=== PATIENT | male | born 2000 | race Caucasian/White ===

== ENCOUNTER 2025-04-02 19:24 | Emergency (ER) | payer BC, SELFPAY ==
[2025-04-02 19:25] VITALS: BP 144/76; PULSE 78; RESP 18; TEMP 37; O2SAT 99; BMI 25.4
--- NOTE | 2025-04-02 19:46 | EDS_ITS ---
HPI History of Present Illness Chief Complaint: Syncope Detail of Chief Complaint: Syncope and collapse Informant: patient and spouse/S.O. Onset/Context/Timing Onset: Today and Hours Context: Sudden Onset Timing: Intermittent Quality: Collapse and abnormal motion Location: Residence Current Severity: Gone Maximum Severity: Severe Worsened by: Patient did not having to eat or drink today at work Relieved by: Not applicable Associated Symptoms Associated Symptoms: Pallor according to Narrative Narrative: Patient is a 24-year-old male who went to work. He did not have any to eat or drink all day. He had a 1.5-hour drive home. He stated he sat on the couch waiting for dinner that was being made by his significant other. He had been sitting there for approximately 20 minutes. When he got up he got lightheaded apparently collapsed. This lasted a couple of seconds. There was some abnormal movement of his extremities. He did not bite his tongue. He denies headache. He denied incontinence of urine or stool. He had no prior history. He had an EKG in the past which is normal. There is no history of WPW, Prabhakar Long Ganong syndrome prolonged QT etc. He denies any symptoms presently. He states his vision was not normal. He denied chest pain, pressure tightness heaviness. He denied dyspnea. He has not had recent black or maroon stool. He is not had recent diarrhea. Prior similar symptoms: No Recent Illness/Hospitalization: No PFSH PFSH Medical History no medical history no medical history Home Medications ?Medication ?Instructions ?Recorded ?Last Taken ?Type NK 04/02/25 Unknown History Allergy/AdvReac Type Severity Reaction Status Date / Time Sulfa (Sulfonamide Allergy Hives Verified 04/02/25 19:26 Antibiotics) Family History no significant family his no significant family history Surgical History no surgical history no surgical history Social History household members: spouse current occupational status: employed Smoking Status: Never smoker ROS ROS ED Constitutional Constitutional ED: Denies chills, fever(s), subjective or sweats Eyes Eyes: Reports change in vision Cardiovascular Cardiovascular: Denies chest pain or palpitations Respiratory/Chest Respiratory/Chest: Denies cough, dyspnea or dyspnea on exertion Gastrointestinal Gastrointestinal: Reports nausea; Denies abdominal pain, diarrhea, melena or vomiting Genitourinary Genitourinary ED: Denies dysuria, hematuria or urinary frequency Neurologic Neurologic: Denies headache(s), paresthesias or weakness EXAM Physical Exam Const Vital Signs: 04/02/25 19:25 04/02/25 19:42 04/02/25 19:51 Temperature 98.6 F Temperature Source Oral Pulse Rate 78 Pulse Rate [Lying] 89 Pulse Rate [Sitting (for 1 minute prior to obtaining)] 79 Pulse Rate [Standing (for 1 minute prior to obtaining)] 98 Respiratory Rate 18 Respiratory Effort Normal Non-Labored Respiratory Pattern Normal Blood Pressure 144/76 H Blood Pressure [Lying] 139/75 H Blood Pressure [Sitting (for 1 minute prior to obtaining)] 154/74 H Blood Pressure [Standing (for 1 minute prior to obtaining)] 140/83 H Blood Pressure Mean 98 Blood Pressure Mean [Lying] 96 Blood Pressure Mean [Sitting (for 1 minute prior to obtaining)] 100 Blood Pressure Mean [Standing (for 1 minute prior to obtaining)] 102 Pulse Ox 99 Oxygen Delivery Method Room Air 04/02/25 20:15 04/02/25 21:00 04/02/25 22:00 Temperature 96.9 F L Temperature Source Pulse Rate 76 64 86 Pulse Rate [Lying] Pulse Rate [Sitting (for 1 minute prior to obtaining)] Pulse Rate [Standing (for 1 minute prior to obtaining)] Respiratory Rate 17 11 L 18 Respiratory Effort Respiratory Pattern Blood Pressure 138/73 H 141/69 H Blood Pressure [Lying] Blood Pressure [Sitting (for 1 minute prior to obtaining)] Blood Pressure [Standing (for 1 minute prior to obtaining)] Blood Pressure Mean 93 93 Blood Pressure Mean [Lying] Blood Pressure Mean [Sitting (for 1 minute prior to obtaining)] Blood Pressure Mean [Standing (for 1 minute prior to obtaining)] Pulse Ox 100 99 100 Oxygen Delivery Method Positive well nourished and well developed Constitutional Narrative: Orthostatic vital signs were normal. Patient does have an elevated blood pressure General Appearance ED: well developed and NAD; Negative for pallor HEENT Reports dry mucous membranes HEENT Narrative: Head is atraumatic normocephalic. Ears normal. Nares patent. Posterior pharynx is normal. Mouth ED: Yes dry mucous membranes Mouth: dry mucous membranes Eyes PERRL and EOMs intact bilaterally General Eye ED: Negative for pale conjunctiva or scleral icterus Neck no lymphadenopathy, supple and no JVD Resp normal respiratory effort and clear to auscultation bilaterally Cardio regular rate, regular rhythm, S1 normal heart sound, S2 normal heart sound and no murmurs GI normal to inspection, nondistended, normoactive bowel sounds, non-tender, non- distended and no masses; Negative for hepatosplenomegaly Extremity normal to inspection Neuro oriented x3 and CN's II-XII intact bilaterally Sensorium / Orientation: alert Psych mental status grossly normal Skin no rashes or lesions noted, no wounds and skin turgor normal General Skin Exam: elasticity normal; Negative for jaundice or pallor MDM MDM MDM Narrative Medical decision making narrative: Differential diagnosis is vasovagal syncope, cardiac dysrhythmia, orthostatic hypotension. Suspect the latter. Since patient's had prior EKGs which revealed no evidence of preexcitation syndrome or prolonged QT and he is on no medication do not believe a repeat needs to be obtained. Will place on the monitor. Monitor reveals a sinus rhythm rate of 88 with no ectopy. Since orthostatics were negative he was discharged to home with appropriate home-going instruction. Suspect this was a vasovagal event. Rhythm Strip Rhythm Strip: Sinus Rhythm Rate: 80 Ectopy: None Discharge Plan Triage Chief Complaint: Syncope ED Provider: Damir Yates Dx/Rx/DC Orders Clinical Impression: Syncope and collapse, Elevated blood-pressure reading without diagnosis of hypertension Instructions: ED Fainting, Vagal Reaction Prescriptions: No Action NK Primary Care Provider: Care Physician,No Primary Referrals: Rony Pabon MD [Med Staff - [facility]] - As Needed Care Physician,No Primary [Primary Care Provider, Medical] Activity Restrictions/Additional Instructions: Follow-up with your doctor as needed. If you do not have a doctor follow-up with Dr. Elias Print Language: Welsh Disposition Disposition: Home, Self Care Discharge Date/Time: 04/02/25 22:10
[2025-04-02 19:51] VITALS: BP 139/75; BP 140/83; BP 154/74; PULSE 79; PULSE 89; PULSE 98
[2025-04-02 20:15] VITALS: BP 138/73; PULSE 76; RESP 17; O2SAT 100
[2025-04-02 21:00] VITALS: PULSE 64; RESP 11; O2SAT 99
[2025-04-02 22:00] VITALS: BP 141/69; PULSE 86; RESP 18; TEMP 36.1; O2SAT 100
== END 2025-04-02 22:10 | disposition home or self-care (01) ==
PROVIDERS: Emergency Provider Emergency Medicine; Visit Provider Emergency Medicine
DX: R55 Syncope and collapse (principal); R03.0 Elevated blood-pressure reading, without diagnosis of hypertension
CPT/HCPCS: 99284